=== PATIENT | male | born 1965 | race Caucasian/White ===

== ENCOUNTER 2020-11-10 01:36 | Emergency (ER) | payer BC ==
[2020-11-10] MEDS ORDERED: Diphtheria,Pertussis(Acell),Tetanus Vaccine 0.5 ML Syringe IM ONE (01:46)
[2020-11-10] MEDS ORDERED: Diphtheria,Pertussis(Acell),Tetanus Vaccine 0.5 ML Syringe ONE (01:50)
[2020-11-10] MEDS ORDERED: Ibuprofen 600 MG Tab PO ONE (02:16)
[2020-11-10] MEDS ORDERED: Cephalexin 500 MG Cap PO ONE (02:16)
[2020-11-10] MEDS ORDERED: Cephalexin 500 MG Cap ONE (02:21)
[2020-11-10] MEDS ORDERED: Ibuprofen 600 MG Tab ONE (02:21)
--- NOTE | 2020-11-10 02:21 | EDM.PDOC ---
ED HPI GENERAL MEDICAL PROBLEM - General Chief Complaint: Laceration Stated Complaint: EMS Time Seen by Provider: 11/10/20 01:40 - History of Present Illness INITIAL COMMENTS - FREE TEXT/NARRATIVE: HISTORY AND PHYSICAL: History of present illness: This is a healthy 55-year-old gentleman with a history significant for hypertension who presents ER today secondary to a laceration extending from the bridge of the nose down to his alar crease. Patient reports that he was drinking earlier tonight with his . While they are in hotel room he was walking back from the bathroom and tripped and hit his nose against the nightst and. Patient reports he had no loss of consciousness. Patient has no dizziness. Patient has no neck pain or confusion. Patient reports he felt the pain immediately and identified bleeding. Patient went to the mirror and noticed he had a large laceration to his nose that would need sutures so EMS was dispatched. Patient denies any other complaints at this time. Patient denies any recent fevers, shakes, chills, nausea, vomiting, diarrhea, dysuria, frequency, urgency, chest pain, shortness of breath. Patient denies any pain to his upper or lower extremities. Patient has any pain to his neck upper or lower back. Review of systems: As per history of present illness and below otherwise all systems reviewed and negative. Past medical history: As per history of present illness and as reviewed below otherwise noncontributory. Surgical history: As per history of present illness and as reviewed below otherwise noncontributory. Social history: No reported history of drug abuse. Family history: As per history of present illness and as reviewed below otherwise noncontributory. Physical exam: This patient was seen and evaluated during the 2019 SARS-CoV-2 novel coronavirus pandemic period. Community viral transmission is ongoing at time of this encounter and the emergency department is operating under pandemic response procedures. Constitutional: Patient is oriented to person, place, and time. Appears well- developed and well-nourished. No distress. HEENT: Moist mucous membranes Head: Normocephalic and atraumatic Eyes: Right eye exhibits no discharge. Left eye exhibits no discharge. No scleral icterus Neck: Normal range of motion. No tracheal deviation present. Cardiovascular: Normal rate and regular rhythm. Pulmonary: Effort normal, no respiratory distress. Abdominal: No distention Musculoskeletal: Normal range of motion Neurologic: Alert and oriented to person, place and time. Skin: [place], warm and dry. Psychiatric: Normal mood and affect. Behavior is normal. Judgment and thought content normal. Nursing note and vital signs have been reviewed Patient has no C-spine T-spine or L-spine tenderness to palpation. Patient has no left upper or right upper quadrant tenderness to palpation. Patient has no crepitus to palpation to the anterior chest wall. Patient is neurologically intact. Patient does not present with any signs or or symptoms that would be consistent with acute intracranial, intra-abdominal, intrathoracic, or long bone injury. All long bones have been palpated and range of motion been performed and there is no evidence of any acute pathology. Patient's ER physical exam is significant for a 7 cm horizontal laceration through the bridge of his nose extending both to the left and to the right lateral aspect of the nose down to the right alar region of the nose. Patient's cartilage in his nose is intact. Diagnostics: X-ray of nose: Therapeutics: Tdap 0.5 IM Ibuprofen 600 mg p.o., Keflex 500 mg p.o. Assessment and plan: This is a 55-year-old gentleman who presents to the ER today secondary to laceration to his nose that incurred when he fell and hit his nose against a piece of furniture at the hotel. Patient denies any dizziness. Patient reports that the reason of his fall was a tripped over a piece of furniture in the dark when he was coming back to the bathroom. Patient was sutured in the ED. Patient be given ibuprofen for pain and Keflex for infection prevention. Patient's tetanus status was updated here in the ED. I discussed with patient that he will need a wound check in 2 days and sutures to be removed in 7 days. The following information is given to patients seen in the emergency department who are being discharged to home. This information is to outline your options for follow-up care. We provide all patients seen in our emergency department with a follow-up referral. The need for follow-up, as well as the timing and circumstances, are variable depending upon the specifics of your emergency department visit. If you don't have a primary care physician on staff, we will provide you with a referral. We always advise you to contact your personal physician following an emergency department visit to inform them of the circumstance of the visit and for follow-up with them and/or the need for any referrals to a consulting specialist. The emergency department will also refer you to a specialist when appropriate. This referral assures that you have the opportunity for follow-up care with a specialist. All of these measure are taken in an effort to provide you with o ptimal care, which includes your follow-up. Under all circumstances we always encourage you to contact your private physician who remains a resource for coordinating your care. When calling for follow-up care, please make the office aware that this follow-up is from your recent emergency room visit. If for any reason you are refused follow-up, please contact the [facility] Emergency Department at and asked to speak to the emergency department charge nurse. [facility] [address] [place] [id number] [address] [address] Definitive disposition and diagnosis as appropriate pending reevaluation and review of above. Nose Pain Score (Numeric/FACES): 5 - Related Data Allergies Allergy/AdvReac Type Severity Reaction Status Date / Time No Known Allergies Allergy Verified 11/10/20 01:40 Home Meds: Home Meds Ibuprofen 600 mg PO Q6HR PRN #30 tablet 11/10/20 [Rx] cephALEXin [Keflex] 500 mg PO Q8H #30 cap 11/10/20 [Rx] Past Medical History Cardiovascular History: Reports: Hypertension - Infectious Disease History Infectious Disease History: Reports: Chicken Pox Social & Family History - Family History Family Medical History: No Pertinent Family History - Tobacco Use Tobacco Use Status *Q: Never Tobacco User Second Hand Smoke Exposure: No - Recreational Drug Use Recreational Drug Use: No ED ROS GENERAL - Review of Systems Review Of Systems: See Below ED EXAM, SKIN/RASH Exam: See Below ED SKIN PROCEDURES - Laceration/Wound Repair Nose Appearance: Subcutaneous, Irregular, Clean Distal NVT: Neuro & Vascular Intact Anesthetic Type: Local Local Anesthesia - Lidocaine (Xylocaine): 1% Plain Local Anesthetic Volume: 4cc Skin Prep: Chlorhexidine (Hibiciens), Saline Saline Irrigation (cc's): 1,000 Exploration/Debridement/Repair: Wound Explored, Multiple Flaps Aligned Closed with: Sutures Lac/Wound length In cm: 10 Suture Size: 6-0 # of Sutures: 20 Suture Type: Nylon, Interrupted, Simple Drain Placement: No Tetanus Status Addressed: Yes Complications: No Course - Vital Signs Last Recorded V/S: Last Vital Signs Temp 97.3 F 11/10/20 01:37 Pulse 94 11/10/20 01:37 Resp 18 11/10/20 01:37 BP 138/91 H 11/10/20 01:37 Pulse Ox 94 L 11/10/20 01:37 - Orders/Labs/Meds Orders: Active Orders 24 hr Category Date Time Status Vaccines to be Administered [RC] PER UNIT ROUTINE Care 11/10/20 01:46 Active Nasal Bone Min 3V [CR] Stat Exams 11/10/20 02:18 Ordered Meds: Medications Discontinued Medications Generic Name Dose Route Start Last Admin Trade Name Donald PRN Reason Stop Dose Admin Bacitracin 1 dose 11/10/20 02:22 11/10/20 02:24 Bacitracin Oint 1 Gm U/D Packet TOP 11/10/20 02:23 1 dose ONETIME ONE Administration Cephalexin 500 mg 11/10/20 02:16 11/10/20 02:24 Cephalexin 500 Mg Cap PO 11/10/20 02:17 500 mg ONETIME ONE Administration Diphtheria/Tetanus/Acell Pertussis 0.5 ml 11/10/20 01:46 11/10/20 01:51 Diphtheria,Pertussis(Acell),Tetanus Vaccine 0.5 Ml Syringe IM 11/10/20 01:47 0.5 ml .ONCE ONE Administration Ibuprofen 600 mg 11/10/20 02:16 11/10/20 02:24 Ibuprofen 600 Mg Tab PO 11/10/20 02:17 600 mg ONETIME ONE Administration Lidocaine HCl 10 ml 11/10/20 01:45 11/10/20 01:51 Lidocaine 1% 5 Ml Sdv INJECT 11/10/20 01:46 10 ml ONETIME ONE Administration Departure - Departure Time of Disposition: 02:22 Disposition: Home, Self-Care 01 Condition: Good Clinical Impression: Nasal bone fracture Laceration of nose, complex Qualifiers: Encounter type: initial encounter Qualified Code(s): S01.21XA - Laceration without foreign body of nose, initial encounter - Discharge Information Prescriptions: Ibuprofen 600 mg PO Q6HR PRN #30 tablet PRN Reason: Pain cephALEXin [Keflex] 500 mg PO Q8H #30 cap Instructions: Facial Laceration, Nasal Fracture, [id number] Forms: ED Department Discharge Additional Instructions: Your seen and evaluated in ER today secondary to a laceration to your nose from a fall. We have placed 20 sutures to approximate your wound edges. You will need a wound check in 2 days by a healthcare provider. Your sutures can be removed in 7 days. You will be given a prescription for ibuprofen to help with pain as well as a prescription for Keflex to help prevent infection. Your tetanus was updated today in the ED. The following information is given to patients seen in the emergency department who are being discharged to home. This information is to outline your options for follow-up care. We provide all patients seen in our emergency department with a follow-up referral. The need for follow-up, as well as the timing and circumstances, are variable depending upon the specifics of your emergency department visit. If you don't have a primary care physician on staff, we will provide you with a referral. We always advise you to contact your personal physician following an emergency department visit to inform them of the circumstance of the visit and for follow-up with them and/or the need for any referrals to a consulting specialist. The emergency department will also refer you to a specialist when appropriate. This referral assures that you have the opportunity for follow-up care with a specialist. All of these measure are taken in an effort to provide you with optimal care, which includes your follow-up. Under all circumstances we always encourage you to contact your private physician who remains a resource for coordinating your care. When calling for follow-up care, please make the office aware that this follow-up is from your recent emergency room visit. If for any reason you are refused follow-up, please contact the [facility] Department at and asked to speak to the emergency department shayne . [facility] [address] [place] [id number] [facility] [address] [place] [id number] Sepsis Event Note (ED) - Evaluation Sepsis Screening Result: No Definite Risk - Focused Exam Vital Signs: Vital Signs Temp Pulse Resp BP Pulse Ox 11/10/20 01:37 97.3 F 94 18 138/91 H 94 L - My Orders Last 24 Hours: My Active Orders 11/10/20 01:46 Vaccines to be Administered [RC] PER UNIT ROUTINE 11/10/20 02:18 Nasal Bone Min 3V [CR] Stat - Assessment/Plan Last 24 Hours: My Active Orders 11/10/20 01:46 Vaccines to be Administered [RC] PER UNIT ROUTINE 11/10/20 02:18 Nasal Bone Min 3V [CR] Stat
[2020-11-10] MEDS ORDERED: Bacitracin Oint 1 GM U/D Packet TOP ONE (02:22)
[2020-11-10] MEDS ORDERED: Bacitracin Oint 1 GM U/D Packet ONE (02:23)
--- NOTE | 2020-11-10 03:31 | CR ---
Indication: Trauma Technique: Three views of the nasal bones Comparison: None available Findings/Impression: Comminuted nasal bone fractures with mild displacement. Overlying nasal soft tissue swelling. Hypo pneumatized frontal sinuses. No definite air-fluid levels. Dictated by Fito Hall MD @ 11/10/2020 3:30:[address] Fito Hall @ Nov 10 2020 3:30AM
== END 2020-11-10 02:57 | disposition home or self-care (01) ==
LOC: MW.ED 01:36
DX: S02.2XXA Fracture of nasal bones, initial encounter for closed fracture (principal); I10 Essential (primary) hypertension; Z23 Encounter for immunization; W01.10XA Fall on same level from slipping, tripping and stumbling with subsequent striking against unspecified object, initial encounter
CPT/HCPCS: 12015; 70160; 90471; 90715; 99283; A9270